=== PATIENT | male | born 1970 | race Caucasian/White ===

== ENCOUNTER 2022-07-14 12:28 | Inpatient (IN) | payer OTHER ==
[~2022-07-14] VITALS: Ht 167.6 cm; Wt 79.6 kg
[2022-07-14 13:43] LABS: BASO % 0.2 % (0.0-1.0); EOS % 0.1 % (0.0-3.0); HEMATOCRIT 45.4 % (42.0-52.0); HEMOGLOBIN 15.5 g/dl (13.5-17.5); LYMPH # 1.8 10^3/uL (1.5-5.0); LYMPH % 11.2 % (24.0-44.0); MEAN CORPUSCULAR HEMOGLOBIN 32.9 pg (27.0-33.0); MEAN CORPUSCULAR HGB CONC 34.1 g/dl (32.0-36.5); MEAN CORPUSCULAR VOLUME 96.4 fl (80.0-96.0); MONO # 1.2 10^3/uL (0.0-0.8); MONO % 7.8 % (2.0-8.0); NEUTROPHILS # 12.8 10^3/uL (1.5-8.5); NEUTROPHILS % 80.2 % (36.0-66.0); PLATELET COUNT, AUTOMATED 214 10^3/uL (150-450); RED BLOOD COUNT 4.71 10^6/uL (4.30-6.10)
[2022-07-14 14:17] LABS: ALT/SGPT 25 U/L (12-78); BILIRUBIN,DIRECT 0.4 MG/DL (0.0-0.2); BILIRUBIN,TOTAL 1.6 MG/DL (0.2-1.0); BLOOD UREA NITROGEN 9 MG/DL (7-18); CALCIUM LEVEL 9.4 MG/DL (8.5-10.1); CARBON DIOXIDE LEVEL 27 MEQ/L (21-32); CHLORIDE LEVEL 100 MEQ/L (98-107); GLOMERULAR FILTRATION RATE > 60.0 (>60); GLUCOSE, FASTING 115 MG/DL (70-100); LIPASE 48 U/L (73-393); POTASSIUM SERUM 4.2 MEQ/L (3.5-5.1); SODIUM LEVEL 135 MEQ/L (136-145); TOTAL PROTEIN 7.7 GM/DL (6.4-8.2)
[2022-07-14] MEDS ORDERED: PIPERACILLIN/TAZOBACTAM SOD 3.375 GM in D5W MINI-BAG PLUS 50 ML IV ONE (15:15)
[2022-07-14] MEDS ORDERED: NS 1,000 ML IV ONE (15:15)
[2022-07-14] MEDS ORDERED: ISOVUE-370 76% 100ML VIAL As Ordered ONE (15:21)
[2022-07-14] MEDS ORDERED: KETOROLAC 30 MG/ML 1ML VIAL IV ONE (15:25)
[2022-07-14] MEDS ORDERED: THERTAB52 PO (16:45)
[2022-07-14] MEDS ORDERED: HOME MED LIST COMPLETE! XX SCH (16:50)
[2022-07-14 17:02] LABS: RSV AMPLIFICATION NEGATIVE (NEGATIVE)
[2022-07-14] MEDS ORDERED: NORCO, ANEXSIA 5/325MG TABLET (HYDROcodone/ACETAMINOPHEN) PO PRN ×2 (19:00)
[2022-07-14] MEDS ORDERED: ONDANSETRON 4MG 2ML VIAL IV PRN ×2 (19:00→21:30)
[2022-07-14] MEDS ORDERED: KETOROLAC 30 MG/ML 1ML VIAL IV PRN (19:00)
[2022-07-14] MEDS ORDERED: BUPIVACAINE/EPIN 0.25% 30 ML VIAL As Ordered ONE (19:49)
[2022-07-14] MEDS ORDERED: fentaNYL 100 MCG/2 ML INJECTION As Ordered ONE ×2 (19:52→20:31)
[2022-07-14] MEDS ORDERED: dexameTHASONE 4 MG/ML 1ML VIAL (J1100 PER 1MG) As Ordered ONE (19:52)
[2022-07-14] MEDS ORDERED: LIDOCAINE 2% 100MG/5ML SDV (FOR ANES.) As Ordered ONE (19:52)
[2022-07-14] MEDS ORDERED: ONDANSETRON 4MG 2ML VIAL As Ordered ONE (19:52)
[2022-07-14] MEDS ORDERED: ROCURONIUM BROMIDE 50 MG/5 ML VIAL As Ordered ONE (19:52)
[2022-07-14] MEDS ORDERED: propofoL 200 MG/20 ML VIAL As Ordered ONE (19:52)
[2022-07-14] MEDS ORDERED: MIDAZOLAM INJ 2MG/2ML VIAL (J2250 PER 1MG) As Ordered ONE (19:53)
[2022-07-14] MEDS ORDERED: ACETAMINOPHEN 1000MG 100ML IV BTL (OFIRMEV) (J0131 PER 10MG) As Ordered ONE (20:25)
[2022-07-14] MEDS ORDERED: SUGAMMADEX SODIUM 500 MG/5 ML VIAL (BRIDION) As Ordered ONE (20:28)
[2022-07-14] MEDS: SENOKOT S TAB PO SCH (21:00)
[2022-07-14] MEDS ORDERED: METOCLOPRAMIDE INJ 10MG/2ML VIAL (J2765 PER 1) IV PRN (21:30)
[2022-07-14] MEDS ORDERED: LR 1,000 ML IV SCH (21:30)
[2022-07-14] MEDS ORDERED: oxyCODONE 5MG TAB PO PRN (21:30)
[2022-07-14] MEDS ORDERED: fentaNYL 100 MCG/2 ML INJECTION IV PRN (21:30)
[2022-07-14 22:15] VITALS: BP 147/74
[2022-07-14 22:45] VITALS: BP 141/78
[2022-07-14] MEDS: NS 1,000 ML IV SCH (22:50)
[2022-07-14 23:15] VITALS: BP 131/73
[2022-07-14] MEDS: PIPERACILLIN/TAZOBACTAM SOD 3.375 GM in D5W MINI-BAG PLUS 50 ML IV SCH (23:32)
[2022-07-15 00:15] VITALS: BP 143/79
[2022-07-15 01:15] VITALS: BP 131/66
[2022-07-15 02:23] VITALS: BP 129/67
[2022-07-15 03:15] VITALS: BP 126/69
[2022-07-15] MEDS: PIPERACILLIN/TAZOBACTAM SOD 3.375 GM in D5W MINI-BAG PLUS 50 ML IV SCH (05:35)
[2022-07-15 05:53] LABS: HEMATOCRIT 40.9 % (42.0-52.0); HEMOGLOBIN 13.8 g/dl (13.5-17.5); MEAN CORPUSCULAR HGB CONC 33.7 g/dl (32.0-36.5); MEAN CORPUSCULAR VOLUME 97.8 fl (80.0-96.0); PLATELET COUNT, AUTOMATED 177 10^3/uL (150-450); RED BLOOD COUNT 4.18 10^6/uL (4.30-6.10); WHITE BLOOD COUNT 13.9 10^3/uL (4.0-10.0)
[2022-07-15] MEDS: NS 1,000 ML IV SCH (06:12)
[2022-07-15 06:20] LABS: BLOOD UREA NITROGEN 11 MG/DL (7-18); CALCIUM LEVEL 9.1 MG/DL (8.5-10.1); CARBON DIOXIDE LEVEL 26 MEQ/L (21-32); CHLORIDE LEVEL 107 MEQ/L (98-107); CREATININE FOR GFR 0.93 MG/DL (0.70-1.30); GLOMERULAR FILTRATION RATE > 60.0 (>60); GLUCOSE, FASTING 158 MG/DL (70-100); POTASSIUM SERUM 4.4 MEQ/L (3.5-5.1); SODIUM LEVEL 139 MEQ/L (136-145)
[2022-07-15 07:30] VITALS: BP 141/71
[2022-07-15] MEDS ORDERED: HYDR-3715 PO (08:37)
[2022-07-15] MEDS ORDERED: AMOX875T2 PO (08:37)
[2022-07-15] MEDS: SENOKOT S TAB PO SCH (08:53)
[2022-07-15 10:00] VITALS: BP 134/67
== END 2022-07-15 10:53 | disposition home or self-care (01) | DRG 225 ==
LOC: M ED 12:28 → SMC HOSP 18:24 → M SDC 22:24 → M MSPAV 22:56
PROVIDERS: ADMIT Surgery; ATTEND Surgery
PROC: 0DTJ4ZZ Resection of Appendix, Percutaneous Endoscopic Approach (ICD-10-PCS; principal; 2022-07-14 19:30)
DX: K35.32 Acute appendicitis with perforation, localized peritonitis, and gangrene, without abscess (principal); F17.200 Nicotine dependence, unspecified, uncomplicated